=== PATIENT | male | born 1990 | race Caucasian/White ===

== ENCOUNTER 2018-08-22 07:11 | Emergency (ER) | payer MEDICAID, OTHER, SELFPAY ==
[~2018-08-22] VITALS: Ht 172.7 cm; Wt 80.1 kg
[2018-08-22 07:20] VITALS: BP 138/79
[2018-08-22] MEDS ORDERED: AZITHROMYCIN 250 MG TABLET PO STA (07:32)
[2018-08-22] MEDS ORDERED: LIDOCAINE-MPF 1%, 2ML ONE (07:46)
[2018-08-22] MEDS ORDERED: AZITHROMYCIN 250 MG TABLET ONE (07:47)
[2018-08-22] MEDS ORDERED: CEFTRIAXONE 250 MG ONE (07:47)
[2018-08-22] MEDS ORDERED: CEFTRIAXONE 250 MG IM ONE (08:00)
== END 2018-08-22 08:10 | disposition home or self-care (01) ==
LOC: ED 08:04
DX: A54.9 Gonococcal infection, unspecified (principal)
CPT/HCPCS: 96372; 99283; J0696

== ENCOUNTER 2019-05-10 12:50 | Emergency (ER) | payer MEDICAID ==
[~2019-05-10] VITALS: Ht 170.2 cm; Wt 85.4 kg
[2019-05-10 13:05] VITALS: BP 140/76
== END 2019-05-10 15:04 | disposition home or self-care (01) ==
LOC: ED 14:45
DX: R30.0 Dysuria (principal); Z20.2 Contact with and (suspected) exposure to infections with a predominantly sexual mode of transmission
CPT/HCPCS: 81003; 87491; 87591; 96372; 99283; J0696

== ENCOUNTER 2019-12-18 09:44 | Emergency (ER) | payer MEDICAID ==
[~2019-12-18] VITALS: Ht 170.2 cm; Wt 87.6 kg
[2019-12-18 09:47] VITALS: BP 142/85
--- NOTE | 2019-12-18 10:03 | NUR ---
given [facility]. as
[2019-12-18] MEDS ORDERED: CEFTRIAXONE 250 MG ONE (10:27)
[2019-12-18] MEDS ORDERED: AZITHROMYCIN 500 MG TABLET ONE (10:27)
[2019-12-18] MEDS ORDERED: CEFTRIAXONE 250 MG IM ONE (10:30)
[2019-12-18] MEDS ORDERED: AZITHROMYCIN 500 MG TABLET PO ONE (10:30)
== END 2019-12-18 10:53 | disposition home or self-care (01) ==
LOC: ED 10:14
DX: N34.2 Other urethritis (principal)
CPT/HCPCS: 87491; 87591; 96372; 99283; J0696